=== PATIENT | female | born 1935 | race Caucasian/White ===

== ENCOUNTER → 2019-10-15 | Outpatient (CLI) | payer OTHER ==
[~2019-10-15] VITALS: Ht 157.5 cm; Wt 73.3 kg
[~2019-10-15] MED LIST: AEC81 PO; CARB1TAB20 PO; CARV6.25 PO; CEFAZOLIN SODIUM 1 GM VIAL IVP SCH; DULO30CA52 PO; FLUDROCORTISONE PO; HYDR-3894 PO; HYDROCORTISONE SOD SUCCINATE 100 MG/2 ML VIAL IV SCH
[2019-10-15 11:41] LABS: BASOPHILS % (AUTO) 0.4 % (0.0-5.0); EOSINOPHILS % (AUTO) 1.2 % (0.0-8.0); HEMATOCRIT 33.1 % (36-48); MEAN CORPUSCULAR HEMOGLOBIN 22.9 pg (27.0-33.0); MEAN CORPUSCULAR HGB CONC 28.7 g/dL (32.0-36.0); MEAN CORPUSCULAR VOLUME 79.8 fL (79-99); PLATELET COUNT (AUTO) 425 K/uL (130-400); RED BLOOD CELL COUNT(AUTO) 4.15 MIL/uL (4.00-5.50); RED CELL DISTRIBUTION WIDTH 14.5 % (11.0-15.5)
[2019-10-15 11:49] LABS: CREATININE 1.1 mg/dL (0.5-1.5); POTASSIUM 3.2 mmol/L (3.5-5.1)
[2019-10-15 11:52] VITALS: BP 128/66
--- NOTE | 2019-10-18 17:22 | NUR ---
patient family called in Cecilia Beltre to request for procedure to be cancelled, I spoke to Richa Pinon's assistance and notified her and Sampson OR human resources manager manufacturing. Case cancelled per patient family.
== END | disposition home or self-care (01) ==
LOC: DAH 10:00 → EDSTATUS 12:00
PROVIDERS: ATTEND Neurological Surgery
DX: Z01.818 Encounter for other preprocedural examination (principal); M48.061 Spinal stenosis, lumbar region without neurogenic claudication; I10 Essential (primary) hypertension; I51.7 Cardiomegaly; Z90.49 Acquired absence of other specified parts of digestive tract; Z98.890 Other specified postprocedural states; Z90.710 Acquired absence of both cervix and uterus; Z79.82 Long term (current) use of aspirin; Z79.899 Other long term (current) drug therapy; Z96.659 Presence of unspecified artificial knee joint; Z82.49 Family history of ischemic heart disease and other diseases of the circulatory system
CPT/HCPCS: 36415; 80048; 85025; A6260